=== PATIENT | female | born 1990 | race Caucasian/White ===

== ENCOUNTER 2020-02-24 09:49 | Emergency (ER) | payer OTHER ==
--- NOTE | 2020-02-24 10:01 | ER Document Report ---
ED Medical Screen (RME) - General Chief Complaint: Rash Stated Complaint: RASH Time Seen by Provider: 02/24/20 09:55 Notes: Patient is a 29-year-old female who presents to the emergency department with a chief complaint of a rash that started 5 days ago. She was seen at [facility] 2 times over the weekend and was given Keflex, mupirocin cream, a dose of Decadron and Benadryl. Patient states that the rash is spreading. First started on her left anterior leg. States that it is now on her posterior legs. Patient started Keflex yesterday, but has not seen improvement in her symptoms. Exam: Erythematous rash noted to posterior legs. I have greeted and performed a rapid initial assessment of this patient. A comprehensive ED assessment and evaluation of the patient, analysis of test results and completion of medical decision making process will be conducted by an additional ED providers. Physical Exam - Vital signs Vitals: Temp Pulse Resp BP Pulse Ox 99.0 F 63 16 126/69 H 99 02/24/20 09:53 02/24/20 09:53 02/24/20 09:53 02/24/20 09:53 02/24/20 09:53 Course - Vital Signs Vital signs: Temp Pulse Resp BP Pulse Ox 99.0 F 63 16 126/69 H 99 02/24/20 09:53 02/24/20 09:53 02/24/20 09:53 02/24/20 09:53 02/24/20 09:53
[2020-02-24 10:29] LABS: ABSOLUTE EOSINOPHILS # (AUTO) 0.3 10^3/uL (0.0-0.6); ABSOLUTE LYMPHOCYTES (AUTO) 1.5 10^3/uL (0.5-4.7); ABSOLUTE MONOCYTES (AUTO) 0.4 10^3/uL (0.1-1.4); BASOPHILS % (AUTO) 0.8 % (0-2); EOSINOPHILS % (AUTO) 5.8 % (0-6); HEMATOCRIT 39.4 % (36.0-47.0); MEAN CORPUSCULAR HEMOGLOBIN 32.1 pg (27.0-33.4); MEAN CORPUSCULAR HGB CONC 35.5 g/dL (32.0-36.0); MEAN CORPUSCULAR VOLUME 91 fl (80-97); MONOCYTES % (AUTO) 8.2 % (3-13); PLATELET COUNT 186 10^3/uL (150-450); RED BLOOD COUNT 4.35 10^6/uL (3.72-5.28); SEGMENTED NEUTROPHILS % (AUTO) 57.2 % (42-78); TOTAL CELLS COUNTED % (AUTO) 100 %; WHITE BLOOD COUNT 5.2 10^3/uL (4.0-10.5)
--- NOTE | 2020-02-24 10:39 | ER Document Report ---
ED General - General Chief Complaint: Rash Stated Complaint: RASH Time Seen by Provider: 02/24/20 09:55 Primary Care Provider: JOSE BUTTS MD [Primary Care Provider] - Follow up as needed Mode of Arrival: Ambulatory Information source: Patient - [facility] Notes: Patient presents with diffuse rash. She states it is itchy as well as burning. She states she noticed it first on her left lower extremity it is now spread up both thighs and is on the trunk arms and face as well. She did not have any exposures to any known allergens. She has never had a similar previous rash. The rash is worse when she scratches and better without. It has radiated throughout her body. It is mild to moderate in intensity and constant. She has had no shortness of breath. She states she had some mild sinus congestion and cough over the weekend. No vomiting or diarrhea. Benadryl helps some. No relief with mupirocin cream. She states she has 4 dogs but nothing is changed there. No new medications. She has not been in the saleem or around plants. - Related Data Allergies/Adverse Reactions: No Known Allergies Allergy (Verified 02/24/20 10:04) Home Medications: multivitamin, probiotic, calcium Past Medical History - General Information source: Patient - Social History Smoking Status: Current Some Day Smoker Frequency of alcohol use: Occasional Drug Abuse: None Family History: Reviewed & Not Pertinent Patient has homicidal ideation: No Review of Systems - Review of Systems Constitutional: denies: Chills, Fever EENT: Nose congestion, Nose discharge Cardiovascular: denies: Chest pain, Palpitations Respiratory: denies: Cough, Short of breath Physical Exam - Vital signs Vitals: Temp 99 F 02/24/20 09:49 Interpretation: Normal - General General appearance: Appears well, Alert In distress: None - HEENT Head: Normocephalic, Atraumatic, Other - Patient has some scattered hives mainly on the left side of the face - Respiratory Respiratory status: No respiratory distress Breath sounds: Normal - Abdominal Inspection: Normal Distension: No distension Tenderness: Nontender - Back Back: Normal - Extremities General upper extremity: Normal inspection, Other - Except as noted under skin exam General lower extremity: Normal inspection, Other - Except as noted under skin exam - Neurological Neuro grossly intact: Yes Cognition: Normal Speech: Normal Cranial nerves: Normal - Psychological Associated symptoms: Normal affect, Normal mood - Skin Skin Temperature: Warm Skin Moisture: Dry Skin Color: Other - Patient has a diffuse erythematous raised rash. It does hari. It seems most consistent with erythema multiforme. It is present on both legs both arms and on the left side of the face. It is maculopapular. Course - Vital Signs Vital signs: Temp Pulse Resp BP Pulse Ox 99.0 F 63 16 126/69 H 99 02/24/20 09:53 02/24/20 09:53 02/24/20 09:53 02/24/20 09:53 02/24/20 09:53 - Laboratory Result Diagrams: 02/24/20 10:13 02/24/20 10:13 Discharge - Discharge Clinical Impression: Erythema multiforme Condition: Stable Disposition: HOME, SELF-CARE Instructions: Viral Rash ([facility]) Additional Instructions: Please follow-up with dermatology if symptoms persist Prescriptions: Prednisone [Deltasone 10 mg Tablet] 10 mg PO ASDIR PRN 12 Days #42 tablet PRN Reason: Hydroxyzine Pamoate [Vistaril 25 mg Capsule] 25 mg PO DAILY #30 capsule Forms: Return to Work Referrals: JOSE BUTTS MD [Primary Care Provider] - Follow up as needed
[2020-02-24 10:50] LABS: ANION GAP 6 (5-19); BLOOD UREA NITROGEN 13 mg/dL (7-20); CALCIUM 9.3 mg/dL (8.4-10.2); CARBON DIOXIDE 31 mmol/L (22-30); CHLORIDE 98 mmol/L (98-107); GLUCOSE 90 mg/dL (75-110)
[2020-02-24 10:55] VITALS: BP 120/75
== END 2020-02-24 10:56 | disposition home or self-care (01) ==
LOC: ER 09:49
DX: L51.9 Erythema multiforme, unspecified (principal); F17.200 Nicotine dependence, unspecified, uncomplicated; R09.81 Nasal congestion; R09.89 Other specified symptoms and signs involving the circulatory and respiratory systems; Z79.899 Other long term (current) drug therapy
CPT/HCPCS: 36415; 80048; 84703; 85025; 99282